=== PATIENT | female | born 1950 | race Hispanic/Latino ===

== ENCOUNTER 2024-11-03 16:55 | Emergency (ER) | payer MEDICARE ==
[~2024-11-03] VITALS: Ht 160 cm; Wt 61.2 kg
[~2024-11-03 16:55] MED LIST: GLIP1TAB6 PO; HYDR12.530 PO; LEVO75TA10 PO; LINA145C PO; PRAV40TA3 PO; VALS80TA30 PO
--- NOTE | 2024-11-03 17:39 | HMCIMG ---
SHOULDER COMP 2+VWS LT HISTORY: Status post fall COMPARISON: None TECHNIQUE: 2 images of left shoulder were obtained. FINDINGS: There is fracture displacement noted of the superolateral aspect of the humeral head. There is orthopedic fixation screw noted in this area consistent with postop changes. Cortical defect is also seen at the medial aspect of the humeral neck. Soft tissue swelling is seen. Evaluation for tendon and ligaments are limited with x-ray. Degenerative changes are seen. IMPRESSION: 1. Findings as described above.
--- NOTE | 2024-11-03 17:43 | ERN ---
General Chief Complaint: Mechanical Fall Stated Complaint: FALL Time Seen by MD: 16:59 Source: patient History of Present Illness Initial Comments PATIENT IS A 74-YEAR-OLD FEMALE COMING IN TO BE EVALUATED FOR LEFT SHOULDER PAIN. PATIENT STATES THAT THIS PAIN INITIATED SHORTLY AFTER A FALL EARLIER TODAY. SHE STATES SHE FELL DOWN EARLIER TODAY MECHANICAL FALL. Allergies: Coded Allergies: No Known Drug Allergies (Unverified Allergy, Unknown, 11/03/24) Home Meds Reported Medications Hydrochlorothiazide (Hydrochlorothiazide) 12.5 Mg Capsule, 12.5 MG PO HS, CAP 02/23/17 Valsartan (Valsartan) 80 Mg Tablet, 80 MG PO HS, TAB 02/23/17 Pravastatin Sodium (Pravastatin Sodium) 40 Mg Tablet, 40 MG PO HS, TAB 02/23/17 Glipizide/Metformin HCl (Glipizide-Metformin 5-500 mg) 1 Each Tablet, 1 EACH PO BID, TAB 02/23/17 Levothyroxine Sodium (Levothyroxine Sodium) 75 Mcg Tablet, 75 MCG PO DAILY, TAB 02/23/17 Linaclotide (Linzess) 145 Mcg Capsule, 145 MCG PO NEEDED, CAP 02/23/17 Past Medical History Past Medical History: Hypertension, Hypothyroid Past Surgical History: Hysterectomy ROS Dictation CONSTITUTIONAL: NO CHILLS, NO FEVER, NO WEAKNESS, NO DIAPHORESIS, NO MALAISE. HEAD/FACE: NO SIGNS OF TRAUMA. EENT: NO EYE PAIN, NO BLURRED VISION, NO TEARING, NO DOUBLE VISION, NO EAR PAIN, NO EAR DISCHARGE, NO NOSE PAIN, NO NASAL CONGESTION, NO THROAT PAIN, NO THROAT SWELLING, NO MOUTH PAIN. RESPIRATORY: NO COUGH, NO ORTHOPNEA, NO SOB, NO STRIDOR, NO WHEEZING. CARDIOVASCULAR: NO CHEST PAIN, NO EDEMA, NO PALPITATIONS, NO SYNCOPE. GASTROINTESTINAL/ABDOMINAL: NO ABDOMINAL PAIN, NO CONSTIPATION, NO DIARRHEA, NO NAUSEA, NO VOMITING. GENITOURINARY: NO ABNORMAL DISCHARGE, NO DYSURIA, NO FREQUENT URINATION, NO HEMATURIA. NO COMPLAINTS OF PAIN IN THE GENITALS. MUSCULOSKELETAL: NO BACK PAIN, NO GOUT, JOINT PAIN, JOINT SWELLING, MUSCLE PAIN, NO MUSCLE STIFFNESS, NO NECK PAIN. INTEGUMENTARY: NO CHANGE IN COLOR, NO CHANGE IN HAIR/NAILS, NO DRYNESS, NO LESION, NO LUMPS, NO RASH. NEUROLOGICAL/PSYCH: NO ANXIETY, NOT DEPRESSED, NO EMOTIONAL PROBLEM, NO HEADACHE, NO NUMBNESS, NO PRE-EXISTING DEFICIT, NO HISTORY OF SEIZURES, NO TREMORS, NO WEAKNESS. HEMATOLOGIC/LYMPHATIC: NOT ANEMIC, NO HISTORY OF BLOOD CLOTS, NO APPARENT BLEEDING, NO BRUISING, GLANDS NOT SWOLLEN. ALL SYSTEMS NEGATIVE, EXCEPT NOTED. Physical Exam Physical Exam Dictation VITAL SIGNS: REVIEWED. GENERAL APPEARANCE: ALERT, ORIENTED X3, NO ACUTE DISTRESS, OBESE. HEAD AND FACE: NON-TRAUMATIC. EYES: PERRL, PINK CONJUNCTIVAS, EYELID NO TRAUMA, ANTERIOR CHAMBER CLEAR. EARS: PINNAS INTACT AND NO SIGNS OF TRAUMA OR ERYTHEMA. EAR CANALS CLEAR AND NO DISCHARGE. TMS NO ERYTHEMA. NOSE: NO DISCHARGE, NO BLEEDING. OROPHARYNX: MOUTH NORMAL, TEETH NO CARIES, TONGUE PINK. PHARYNX CLEAR, NO ERYTHEMA. TONSILS NO EXUDATES, NO ABSCESSES NOTED. MUCOUS MEMBRANE MOIST. NECK: SUPPLE, NON-TENDER, NO THYROMEGALY, NO MASSES, NO JVD, NO BRUITS. BREAST: DEFERRED. CHEST: NO TENDERNESS, NO CREPITUS, NO PARADOXICAL MOVEMENT, NO RETRACTIONS. LUNGS: CLEAR, WELL-VENTILATED, SYMMETRIC, NO RALES, NO WHEEZING, NO RHONCHI, NO STRIDOR, GOOD BREATH SOUNDS BILATERALLY. HEART: REGULAR RATE, REGULAR RHYTHM, NO MURMUR, NO GALLOPS. VASCULAR: NO PERIPHERAL EDEMA. ABDOMEN: SOFT, POSITIVE BOWEL SOUNDS, NONDISTENDED, NO GUARDING, NONTENDER, NO REBOUND, NO MASSES NO HEPATOMEGALY, NO SPLENOMEGALY, NO ODONNELL'S SIGN, NO HERNIAS. RECTAL: DEFERRED. GENITAL: DEFERRED. NEUROLOGICAL: NORMAL SPEECH, GROSS MOTOR FUNCTION INTACT, GROSS SENSORY FUNCTION INTACT. MUSCULOSKELETAL: NECK NONTENDER, FULL RANGE OF MOTION, BACK NONTENDER, FULL RANGE OF MOTION. EXTREMITIES: NONTENDER, FULL RANGE OF MOTION. LEFT SHOULDER PAIN ON PALPATION, PAIN ON ABDUCTION SKIN: COLOR PINK, DRY, NO TURGOR, NO RASH, NO LACERATIONS, NO ABRASIONS, NO CONTUSIONS. LYMPHATICS: DEFERRED. Results EKG/XRAY/US/CT/MRI X-RAY Comment [place] [address] [place] [id number] IMAGING REPORT Signed PATIENT: KATY FERNANDEZ MR#: [id number] : 1950 SEX: F AGE: 74 LOCATION: [facility] ORDER 03 STATUS: REG ER REPORT#: [id number] SERVICE 01 REASON: FALL ORDERING PHYSICIAN: LORENZO MARTINEZ MD PROCEDURE: SHOL 2V LT - SHOULDER COMP 2+VWS LT SHOULDER COMP 2+VWS LT HISTORY: Status post fall COMPARISON: None TECHNIQUE: 2 images of left shoulder were obtained. FINDINGS: There is fracture displacement noted of the superolateral aspect of the humeral head. There is orthopedic fixation screw noted in this area consistent with postop changes. Cortical defect is also seen at the medial aspect of the humeral neck. Soft tissue swelling is seen. Evaluation for tendon and ligaments are limited with x-ray. Degenerative changes are seen. IMPRESSION: 1. Findings as described above. DICTATED BY: ALBERT PEREZ MD DATE: 11/03/241727 ELECTRONICALLY SIGNED BY: ALBERT PEREZ MD DATE: 11/03/241738 [facility] MDM: DIFFERENTIAL DIAGNOSIS: HUMERAL FRACTURE, SHOULDER DISLOCATION, PATIENT IS A 74-YEAR-OLD FEMALE COMING IN TO BE EVALUATED FOR LEFT SHOULDER PAIN AFTER SHE HAD A MECHANICAL FALL EARLIER TODAY. SHOULDER X-RAY DISCLOSE A LATERAL HUMERAL FRACTURE MINIMAL DISPLACEMENT. PATIENT HAD SLING PLACED HE WILL BE DISCHARGED IN STABLE CONDITION WITH ANTI-INFLAMMATORIES. I ADVISED HER APPROPRIATE FOLLOW UP WITH PCP AND OR CHIEF NURSE IN ONE WEEK. ED Course Orders Procedure Category Date Status Time Shoulder Comp 2+Vws Lt RAD 11/03/24 Resulted 17:02 Vital Signs Date Time Temp Pulse Resp B/P (MAP) Pulse Ox O2 Delivery O2 Flow Rate FiO2 11/03/24 16:56 98.2 90 16 174/87 99 Room Air 0 DX & DISP Disposition: Discharge Departure Impression: Primary Impression: Humeral fracture Condition: Stable Scripts Acetaminophen with Codeine (Acetaminophen-Cod #3 Tablet) 300 Mg-30 Mg Tablet 1 TAB PO BID PRN for pain for 4 Days, #8 TAB 0 Refills Prov: LORENZO MARTINEZ MD 11/03/24 Additional Instructions: FOLLOW-UP WITH PRIMARY CARE PROVIDER IN 1 TO 2 DAYS. TAKE MEDICATIONS DIRECT ED HERE IN THE EMERGENCY ROOM. OKAY TO CONTINUE HOME MEDICATIONS UNLESS OTHERWISE DISCUSSED DURING YOUR VISIT IN THE EMERGENCY ROOM TODAY. RETURN TO YOUR NEAREST EMERGENCY ROOM IF SYMPTOMS WORSEN OR IF THERE IS NO IMPROVEMENT. CALL 911 IF YOU NEED IMMEDIATE ASSISTANCE. TAKE TYLENOL [id number] NEEDED AND IF NO CONTRAINDICATIONS ARE PRESENT. INCREASE ORAL HYDRATION. A WOUND CULTURE OR URINE CULTURE WAS ORDERED HERE IN THE EMERGENCY ROOM DEPARTMENT PLEASE FOLLOW-UP WITH PRIMARY CARE PROVIDER AND ADVISE THEM TO GET REPEAT PORTS FROM OUR FACILITY. IF YOU HAD ANY JONATAN WRAP/SPLINTS THAT WERE APPLIED HERE, PLEASE DO NOT REMOVE THEM UNTIL YOU SEE YOUR PRIMARY CARE OR SPECIALTY. REFERRALS: Referrals: ROSALIA TRAMMELL MD (PCP) CHRISTINE TEMPLE MD Time of Disposition: 17:44 LORENZO MARTINEZ MD Nov 03, 2024 17:43
[2024-11-03] MEDS ORDERED: ACET-2079 PO (17:46)
[2024-11-03 18:00] VITALS: BP 121/63; PULSE 87; RESP 20; TEMP 98.8; O2SAT 99
== END 2024-11-03 18:01 | disposition home or self-care (01) ==
LOC: EDH 16:55
DX: S42.292A Other displaced fracture of upper end of left humerus, initial encounter for closed fracture (principal); E03.9 Hypothyroidism, unspecified; I10 Essential (primary) hypertension; Z79.84 Long term (current) use of oral hypoglycemic drugs; Z79.890 Hormone replacement therapy; Z90.710 Acquired absence of both cervix and uterus; W18.39XA Other fall on same level, initial encounter; Y93.89 Activity, other specified; Y92.89 Other specified places as the place of occurrence of the external cause; Y99.8 Other external cause status
CPT/HCPCS: 73030; 99283